=== PATIENT | female | born 1995 | race Caucasian/White ===

== ENCOUNTER 2022-02-19 16:54 | Emergency (ER) | payer MEDICAID ==
[~2022-02-19] VITALS: Ht 160 cm; Wt 102.9 kg
--- NOTE | 2022-02-19 17:21 | ED General ---
General Chief Complaint: Breast Complaints Stated Complaint: RIGHT ARMPIT/SHOULDER/BREAST PAIN History of Present Illness Date Seen by Provider: Feb 19, 2022 Time Seen by Provider: 17:00 Initial Comments Patient is a 26-year-old G2, P2 who presents to the emergency room with a chief complaint of right axillary and right upper outer quadrant breast pain. Worsened today, she states at 1 point today she felt "a pop" and had immediate pain in the upper outer portion of her breast. 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 She denies any redness, swelling or fever. No personal or family history of breast cancer. She denies nipple discharge. She started her menstrual cycle yesterday. She has implanted control. She has a history of hidradenitis suppurativa. No recent outbreaks. She uses daily Cleocin gel and recently got off oral antibiotics. She has not really taken anything for the pain other than a little muscle relaxer. Nothing makes it any better but taking a deep breath tends to intensify the discomfort. She has not talked to her family doctor about this problem. She does see Dr. Spann for her [employer] care. All other review of systems reviewed and negative except as stated. Timing/Duration: 4-6 Hours Severity: Moderate Associated Systoms: Denies Symptoms Allergies and Home Medications Patient Home Medication List Home Medication List Reviewed: Yes Review of Systems Review of Systems Constitutional: see HPI Respiratory: no symptoms reported Cardiovascular: no symptoms reported Gastrointestinal: no symptoms reported Genitourinary: no symptoms reported Musculoskeletal: other (right breast pain) Skin: no symptoms reported All Other Systems Reviewed Negative Unless Noted: Yes Physical Exam Vital Signs Capillary Refill : Height, Weight, BMI Height: '" Weight: lbs. oz. kg; BMI Method: General Appearance: No Apparent Distress, WD/WN HEENT: PERRL/EOMI Neck: Normal Inspection Respiratory: Lungs Clear, Normal Breath Sounds, No Accessory Muscle Use, No Respiratory Distress Cardiovascular: Regular Rate, Rhythm Gastrointestinal: Non Tender, Soft Back: Normal Inspection Extremity: Normal Inspection, Normal Range of Motion, No Calf Tenderness, Other (Right axillary tenderness) Neurologic/Psychiatric: Alert, Oriented x3, No Motor/Sensory Deficits, Normal Mood/Affect Skin: Normal Color, Warm/Dry, Other (Breast exam: Possible soft mobile mass at the 10 o'clock position of the right upper outer breast. Seems to be about 2 to 3 cm potentially in diameter. She is tender at this area. No overlying skin changes. No nipple discharge. No erythema. No axillary lymphadenopathy. She has very dense pendulous breasts.) Progress/Results/Core Measures Suspected Sepsis SIRS Temperature: Pulse: Respiratory Rate: Blood Pressure / Mean: Results/Orders Vital Signs/I&O Capillary Refill : Progress Note : Time: 17:26 Progress Note Discussed follow-up with the patient, recommend NSAIDs at this time. Specifically Aleve 2 pills twice daily. Return precautions were discussed. I advised that she likely needs a breast ultrasound in order to accurately visualize the area of concern. She recently quit caffeine about a month ago. She is a smoker and was counseled on cessation. No personal or family history of breast cancer so that is reassuring. She is on control and she has had children. I advised her if she had redness or increased swelling, fever or pain that she needed to come back to the emergency room. She verbalized understanding. All questions are sought and answered. Counseling-Symptomatic: 3-10 Minutes Follow-up with PCP to: Discuss Further Options Departure Impression Primary Impression: Breast pain in female Disposition: 01 HOME, SELF-CARE Condition: Stable Departure-Patient Inst. Decision time for Depature: 17:20 Referrals: [facility] [place] (PCP/Family) Primary Care Physician Patient Instructions: Mastalgia (DC), Common Breast Problems Add. Discharge Instructions: Please follow-up with Dr. Spann tomorrow. You can take [id number] Aleve or generic equivalent, 2 pills with food t wice daily for pain. Moist heat over the sore area may also help with pain. Please come back to the emergency department if you have increasing pain especially with redness at the painful site, fever, swelling, nipple discharge or any other emergent, concerning symptoms. Copy Copies To 1: LEO SPANN MD, KATHRYN M MD Feb 19, 2022 17:21
[2022-02-19 17:28] VITALS: BP 138/87
== END 2022-02-19 17:29 | disposition home or self-care (01) ==
LOC: ER 16:57
DX: N64.4 Mastodynia (principal); F17.200 Nicotine dependence, unspecified, uncomplicated
CPT/HCPCS: 99281